=== PATIENT | male | born 1970 | race African-American/Black ===

== ENCOUNTER 2018-08-31 10:45 | Emergency (ER) | payer MEDICAID, SELFPAY ==
[~2018-08-31] VITALS: Ht 172.7 cm; Wt 90.7 kg
[~2018-08-31 10:45] MED LIST: NORCO 5-325 TA1 EACH PO; ONDANSETRON ODT4 MG PO
[2018-08-31 11:02] VITALS: BP 178/102
--- NOTE | 2018-08-31 11:12 | NUR ---
ED Nurse Note: Pt came in due to abd pain with nausea and vomiting. Pt also c/o productive coughing with green phlegm.
--- NOTE | 2018-08-31 11:40 | NUR ---
ED Nurse Note: Blood and urine sent.
[2018-08-31] MEDS ORDERED: Morphine Sulfate 4mg/ml Inj (IV USE ONLY) ONE (11:45)
[2018-08-31] MEDS ORDERED: Morphine Sulfate 4mg/ml Inj (IV USE ONLY) IVP ONE (11:45)
--- NOTE | 2018-08-31 11:45 | NUR ---
ED Nurse Note: Pt is actively vomiting and in pain. Dr Patiño notified and waiting for new orders.
[2018-08-31 12:02] LABS: APPEARANCE,URINE CLEAR; BASOPHILS % (AUTO) 1.1 % (0.0-2.0); BILIRUBIN, URINE NEGATIVE (NEGATIVE); COLOR,URINE PALE YELLOW; EOSINOPHILS % (AUTO) 1.3 % (0.0-3.0); GLUCOSE, URINE (UA) NEGATIVE (NEGATIVE); HEMATOCRIT 55.3 % (42.0-52.0); HEMOGLOBIN 17.8 G/DL (14.2-18.0); KETONES,URINE NEGATIVE (NEGATIVE); LEUKOCYTE ESTERASE ,URINE NEGATIVE (NEGATIVE); LYMPHOCYTES % (AUTO) 17.1 % (20.0-45.0); MEAN CORPUSCULAR VOLUME 91 FL (80-99); MONOCYTES % (AUTO) 5.1 % (1.0-10.0); NEUTROPHILS % (AUTO) 75.4 % (45.0-75.0); NITRITE,URINE NEGATIVE (NEGATIVE); PH,URINE 6 (4.5-8.0); PLATELET COUNT 250 K/UL (150-450); PROTEIN,URINE NEGATIVE (NEGATIVE); RED BLOOD COUNT 6.09 M/UL (4.70-6.10); RED CELL DISTRIBUTION WIDTH 13.5 % (11.6-14.8); UROBILINOGEN,URINE NORMAL MG/DL (0.0-1.0); WHITE BLOOD COUNT 7.7 K/UL (4.8-10.8)
[2018-08-31 12:09] LABS: ANION GAP 6 mmol/L (5-15); BLOOD UREA NITROGEN 13 mg/dL (7-18); CALCIUM 9.3 MG/DL (8.5-10.1); CARBON DIOXIDE 30 MMOL/L (21-32); CHLORIDE 101 MMOL/L (98-107); CREATININE 1.1 MG/DL (0.55-1.30); POTASSIUM 4.4 MMOL/L (3.5-5.1); SODIUM 137 MMOL/L (136-145)
[2018-08-31 12:10] LABS: ALANINE AMINOTRANSFERASE 33 U/L (12-78); ALBUMIN/GLOBULIN RATIO 1.1 (1.0-2.7); ALKALINE PHOSPHATASE 85 U/L (46-116); ASPARTATE AMINO TRANSFERASE 22 U/L (15-37); BILIRUBIN,TOTAL 0.4 MG/DL (0.2-1.0)
--- NOTE | 2018-08-31 12:53 | NUR ---
ED Nurse Note: Pt taken to CT via [facility].
--- NOTE | 2018-08-31 13:10 | NUR ---
ED Nurse Note: Pt came back from CT.
--- NOTE | 2018-08-31 13:15 | Diagnostic Imaging Report ---
Indication: Abdominal pain Technique: Continuous helical transaxial imaging of the abdomen and pelvis was obtained from the lung bases to the pubic symphysis. No intravenous contrast was administered. Coronal 2-D reformats were also obtained. Automatic Exposure Control was utilized. Total Dose length Product (DLP): 1004.[address] Dose Index Volume (CTDIvol): 17.93 mGy Comparison: none Findings: Lung bases are clear. There is a moderate-sized umbilical hernia containing fat measuring 3 x 4 cm. The appendix is normal. There is considerable breathing motion which limits evaluation. Few diverticula noted in the colon. No evidence of acute diverticulitis. No evidence of bowel obstruction, free fluid or free air. Gallbladder is unremarkable. No renal stones or hydronephrosis appreciated. IMPRESSION: Umbilical hernia containing fat Diverticulosis of the colon. No definite diverticulitis. Normal appendix. Breathing motion limiting evaluation. The CT scanner at [facility] is accredited by the [employer] and the scans are performed using dose optimization techniques as appropriate to a performed exam including Automatic Exposure control.
[2018-08-31] MEDS ORDERED: Haloperidol 5mg/ml Inj IM ONE (13:30)
--- NOTE | 2018-08-31 13:35 | Emergency Room Report ---
History of Present Illness General Chief Complaint: Abdominal Pain Source: Patient Present Illness HPI 47-year-old male with no major medical problems presents with nausea vomiting past few days, reports diffuse abdominal pain, achy, crampy,, moderate to severe , worse with vomiting episodes, denies any coffee-ground emesis or blood in his vomiting, denies any melanotic stools. He can't think of anything that triggered other than the fact that he smoked marijuana about one week ago, he reports he does not usually smoke marijuana, he denies any heavy drinking, denies any obvious triggers other than the possible marijuana. Allergies: Coded Allergies: No Known Allergies (Unverified , 04/23/12) Patient History Past Medical History: see triage record Reviewed Nursing Documentation: PMH: Agreed; PSxH: Agreed Nursing Documentation-PMH Past Medical History: No Stated History Hx Cardiac Problems: No Hx Hypertension: No Hx Pacemaker: No Hx Asthma: No Hx COPD: No Hx Diabetes: No Hx Cancer: No Hx Gastrointestinal Problems: No Hx Dialysis: No Hx Neurological Problems: No Hx Cerebrovascular Accident: No Hx Seizures: No Review of Systems All Other Systems: negative except mentioned in HPI Physical Exam Vital Signs Date Time Temp Pulse Resp B/P (MAP) Pulse Ox O2 Delivery O2 Flow Rate FiO2 08/31/18 11:02 97.7 16 178/102 99 Room Air 08/31/18 11:02 73 [id number] EP Interpretation: reviewed, normal General Appearance: no apparent distress, alert, non-toxic Head: normocephalic Eyes: bilateral eye normal inspection, bilateral eye PERRL, bilateral eye EOMI ENT: normal ENT inspection, hearing grossly normal, normal pharynx, no angioedema, normal voice, moist mucus membranes Neck: normal inspection, full range of motion, supple, supple/symm/no masses Respiratory: chest non-tender, lungs clear, normal breath sounds, chest symmetrical, palpation of chest normal Cardiovascular #1: normal peripheral pulses, regular rate, rhythm Cardiovascular #2: 2+ radial (R), 2+ radial (L) Gastrointestinal: normal inspection, non tender, soft, no mass, no guarding, no rebound Rectal: deferred Genitourinary: normal inspection, no CVA tenderness Musculoskeletal: back normal, gait/station normal, normal range of motion, non- tender, no calf tenderness Neurologic: alert, responsive, percher III-XII nml as tested, motor strength/tone normal, sensory intact, speech normal Psychiatric: judgement/insight normal, memory normal, mood/affect normal, anxious Skin: normal color, no rash, warm/dry, normal turgor Lymphatic: no adenopathy Medical Decision Making Diagnostic Impression: Primary Impression: Cannabinoid hyperemesis syndrome ER Course Patient with anxious affect, but soft nontender abdomen, has been dry heaving here, was given IV fluids, 1 dose of morphine, doesn't Zofran, it work up early and then he started having dry heaving again, there is no blood in the vomitus, there is actually just a small amount of saliva as he wasn't making much vomitus. He had a normal pulse exam, normal abdominal and genital exam, and normal physical exam otherwise. After I had labs and urine result, I had strong suspicion for cannabinoid hyperemesis syndrome so I gave 5 mg IM [address]ol lactate. CT abd/pelvis with fat containing hernia, no other acute dz. Patient will be dc'd with instructions to avoid marijuana and other cannabinoids, rx for pepcid, zofran, f/u with PMD. CT/MRI/US Diagnostic Results CT/MRI/US Diagnostic Results : Imaging Test Ordered: ct abdomen/pelvis Impression fat containing umbilical hernia, normal appendix, diverticulosis without itis. Last Vital Signs Date Time Temp Pulse Resp B/P (MAP) Pulse Ox O2 Delivery O2 Flow Rate FiO2 08/31/18 11:27 73 16 Room Air 08/31/18 11:02 97.7 178/102 99 Disposition: HOME, SELF-CARE Condition: Stable Referrals: NON PHYSICIAN (PCP) LEESA BARDALES M.D Aug 31, 2018 13:35
[2018-08-31] MEDS ORDERED: PEPCID AC20 M2 PO (13:47)
[2018-08-31] MEDS ORDERED: ZOFRAN4 M3 ORAL (13:47)
[2018-08-31 14:50] VITALS: BP 143/90
--- NOTE | 2018-08-31 14:52 | NUR ---
ED Nurse Note: Patient is being discharged from medical care. IV on right AC and right hand removed and applied clean dry dressing. D/C instruction and prescriptions given. All questions were answered. Ambulated out with steady gait with all his belongings.
== END 2018-08-31 14:54 | disposition home or self-care (01) ==
LOC: EMR 11:36
DX: F12.988 Cannabis use, unspecified with other cannabis-induced disorder (principal); R11.2 Nausea with vomiting, unspecified; K42.9 Umbilical hernia without obstruction or gangrene; K57.30 Diverticulosis of large intestine without perforation or abscess without bleeding
CPT/HCPCS: 36415; 74176; 80053; 81003; 83690; 85025; 96361; 96372; 96374; 96375; 99284; J1630; J2270; J2405